=== PATIENT | male | born 1970 | race Caucasian/White ===

== ENCOUNTER 2021-02-25 15:25 | Inpatient (IN) | payer SELFPAY ==
[~2021-02-25] VITALS: Ht 167.6 cm; Wt 61.4 kg
[2021-02-25] VITALS (10 sets, daily range): BP systolic 125–158; BP diastolic 72–95
[2021-02-25 16:42] LABS: BASO # 0.1 x10^3/uL (0.0-0.2); BASO % 1 % (0-3); EOS # 0.1 x10^3/uL (0.0-0.7); EOS % 2 % (0-3); LYMPH # 1.6 x10^3/uL (1.0-4.8); LYMPH % 27 % (24-48); MEAN CORPUSCULAR HEMOGLOBIN 26 pg (25-35); MEAN CORPUSCULAR HGB CONC 32 g/dL (31-37); MEAN CORPUSCULAR VOLUME 79 fL (79-100); MONO # 0.6 x10^3/uL (0.0-1.1); MONO % 9 % (0-9); NEUT # 3.6 x10^3/uL (1.8-7.7); PLATELET COUNT 165 x10^3/uL (140-400); RED BLOOD COUNT 1.98 x10^6/uL (4.30-5.70); RED CELL DISTRIBUTION WIDTH 17.1 % (11.5-14.5)
[2021-02-25 16:47] LABS: HEMATOCRIT 15.7 % (39.0-53.0); HEMOGLOBIN 5.1 g/dL (13.0-17.5)
--- NOTE | 2021-02-25 16:57 | PHYS DOC ---
Past Medical History Past Surgical History: No Surgical History Smoking Status: Current Every Day Smoker Alcohol Use: Heavy Additional Information: 6 pack/day General Adult EDM: Chief Complaint: WEAKNESS/GENERALIZED HPI: HPI: 50 yo M M past medical history of tobacco use and alcoholism, presents to the ED BIBEMS with complaints of shortness of breath stating, "I felt so run down," and weakness for the past day. Patient reports he drinks approximately 6 beers a day, has not drink any hard liquor. States he has daily diarrhea due to beer use, color is brown. Reports he received his Covid vaccine 2 weeks ago. Has been told he is anemic but denies any prior history of blood transfusions. Review of Systems: Review of Systems: Constitutional: Denies fever or chills. [] Eyes: Denies change in visual acuity. [] HENT: Denies nasal congestion or sore throat. [] Respiratory: Denies cough or shortness of breath. [] Cardiovascular: Denies chest pain or edema. [] GI: Denies nausea or vomiting or melena or hematochezia : Denies dysuria or hematuria Musculoskeletal: Denies back pain or joint pain. [] Integument: Denies rash or diaphoresis Neurologic: Denies headache, focal weakness or sensory changes. [] Endocrine: Denies polyuria or polydipsia. [] Lymphatic: Denies swollen glands. [] Psychiatric: Denies depression or anxiety. [] Heart Score: C/O Chest Pain: No Risk Factors: Risk Factors: DM, Current or recent (<one month) smoker, HTN, HLP, family history of CAD, obesity. Risk Scores: Score 0 - 3: 2.5% MACE over next 6 weeks - Discharge Home Score 4 - 6: 20.3% MACE over next 6 weeks - Admit for Clinical Observation Score 7 - 10: 72.7% MACE over next 6 weeks - Early Invasive Strategies Allergies: Allergies: Allergies Coded Allergies Type Severity Reaction Last Updated Verified Penicillins Allergy Intermediate 02/25/21 Yes aspirin Allergy Intermediate 02/25/21 Yes codeine Allergy Intermediate 02/25/21 Yes Physical Exam: PE: Constitutional: Unkept/disheveled appearance, slurred speech HENT: Normocephalic, atraumatic, dry mucous membrnaes Eyes: EOMI, conjunctiva normal, no discharge. Neck: Normal range of motion, supple, Cardiovascular: S1/2 present, regular rhythm Lungs & Thorax: Speaking in full sentences, bilateral equal chest rise, no tachypnea or increased work of breathing Abdomen: soft, no tenderness, Skin: Warm, dry, multiple areas of excoriations Extremities: No tenderness, no cyanosis, no lower extremity edema Neurologic: Alert and oriented X 3, no focal deficits noted. [] Psychologic: Affect normal, judgement normal, mood normal. [] Current Patient Data: Labs: Laboratory Tests Test 02/25/21 16:32 White Blood Count 6.0 x10^3/uL (4.0-11.0) Red Blood Count 1.98 x10^6/uL (4.30-5.70) L Hemoglobin 5.1 g/dL (13.0-17.5) *L Hematocrit 15.7 % (39.0-53.0) *L Mean Corpuscular Volume 79 fL (79-100) Mean Corpuscular Hemoglobin 26 pg (25-35) Mean Corpuscular Hemoglobin Concent 32 g/dL (31-37) Red Cell Distribution Width 17.1 % (11.5-14.5) H Platelet Count 165 x10^3/uL (140-400) Neutrophils (%) (Auto) 60 % (31-73) Lymphocytes (%) (Auto) 27 % (24-48) Monocytes (%) (Auto) 9 % (0-9) Eosinophils (%) (Auto) 2 % (0-3) Basophils (%) (Auto) 1 % (0-3) Neutrophils # (Auto) 3.6 x10^3/uL (1.8-7.7) Lymphocytes # (Auto) 1.6 x10^3/uL (1.0-4.8) Monocytes # (Auto) 0.6 x10^3/uL (0.0-1.1) Eosinophils # (Auto) 0.1 x10^3/uL (0.0-0.7) Basophils # (Auto) 0.1 x10^3/uL (0.0-0.2) Laboratory Tests 02/25/21 16:32 Vital Signs: Vital Signs Date Time Temp Pulse Resp B/P (MAP) Pulse Ox O2 Delivery O2 Flow Rate FiO2 02/25/21 16:20 98.9 91 16 143/85 100 Room Air 98.9 EKG: EKG: Sinus rhythm 83 bpm, no axis deviation, QTC 462, no T wave inversions, no ST elevations or ST depressions, no active chest pain Radiology/Procedures: Radiology/Procedures: [] Course & Med Decision Making: Course & Med Decision Making Pertinent Labs and Imaging studies reviewed. (See chart for details) Concern for symptomatic anemia in the setting of alcohol intoxication, likely beer potomania with hyponatremia. 2 units PRBCs ordered. Patient also has bedbugs. Will admit for further medical management. Patient stable at time of admission and agrees with this plan. I have spoken with the patient and/or caregivers. I have explained the patient's condition, diagnosis and treatment plan based on the information available to me at this time. I have answered the patient's and/or caregivers questions and answered any concerns. The patient and/or caregivers have as good an understanding of the patient's diagnosis, condition and treatment plan as can be expected at this point. The patient has been stabilized within the capability of the emergency department. The patient will be transported for further care and management or will be moved to an observation or inpatient service. I have communicated with the staff or medical practitioner taking over this patient's care. Norma Disclaimer: Norma Disclaimer: This electronic medical record was generated, in whole or in part, using a voice recognition dictation system. Departure Departure Impression: Primary Impression: Anemia requiring transfusions Additional Impression: Alcohol intoxication Disposition: ADMITTED INPATIENT Admitting Physician: MOOK (Dr. Plunkett) Condition: STABLE Referrals: NO PCP (PCP) KISHA MORGAN DO Feb 25, 2021 16:56
[2021-02-25 17:08] LABS: CALCIUM 7.8 mg/dL (8.5-10.1); CREATININE 0.9 mg/dL (0.7-1.3); GFR 88.6; POTASSIUM 3.8 mmol/L (3.5-5.1)
[2021-02-25 17:14] LABS: % EOS 1 % (0-5); % LYMPHS 11 % (24-48); % MONOS 3 % (0-10); % SEGS 85 % (35-66); NEUT % 60 % (31-73)
[2021-02-25 17:15] LABS: ANISOCYTOSIS SLIGHT; PLT ESTIMATE ADEQUATE (ADEQUATE); TOXIC GRANULATION SLIGHT
[2021-02-25 17:16] LABS: HYPOCHROMIA SLIGHT
[2021-02-25 17:20] LABS: ALBUMIN 2.9 g/dL (3.4-5.0); ALBUMIN/GLOBULIN RATIO 0.5 (1.0-1.7); MAGNESIUM 1.5 mg/dL (1.8-2.4); TOTAL BILIRUBIN 0.3 mg/dL (0.2-1.0)
--- NOTE | 2021-02-25 17:37 | RAD ---
Single view chest dated 02/25/2021 5:34 PM: COMPARISON: None Clinical Indication: Weakness. Findings: Single upright portable exam of the chest was performed. Heart and mediastinal contours within normal limits. Calcified right hilar lymph nodes. There is some prominent perihilar linear markings, left g reater than right with blunting of left costophrenic sulcus. There is also an old healed rib fracture on the left. No pleural effusion. No pneumothorax. IMPRESSION: 1. No acute radiographic abnormality. 2. Linear perihilar opacity in the left with blunting of the left costophrenic sulcus, likely related to scarring. 3. Old healed rib fracture on the left. Electronically signed by: Sumanth Marquez MD (02/25/2021 5:35 PM) [facility]
[2021-02-25 17:57] LABS: BARBITURATES NEG (NEG); BENZODIAZEPINES NEG (NEG); CANNABINOIDS POS (NEG); COCAINE NEG (NEG); METHADONE NEG (NEG); OPIATES NEG (NEG); PHENCYCLIDINE NEG (NEG)
[2021-02-25 18:08] LABS: AMPHETAMINE/METHAMPHETAMINE NEG (NEG)
--- NOTE | 2021-02-25 18:50 | PDOC1 ---
History and Physical Date of Service: DOS: DATE: 02/25/21 TIME: 18:39 Chief Complaint: Chief Complain: Generalized weakness History of Present Illness: HPI: 50 yo M with PMHx of EtOH and tobacco abuse who comes in for fatigue and SOB that started today. In fact, 3 days ago patient had a hematemesis episode but felt like he could just ride it out without seeing a doctor. He reports drinking 6 beers a day and had 3 this morning. He has had tremors and feelings of withdrawal in the past. Denies fevers, syncope, chest pain, ABD pain, diarrhea or bloody diarrhea. No hx of blood transfusions. Past Medical/Surgical History: PMH/PSH: Denies past medical or surgical Hx Allergies: Allergies: Coded Allergies: Penicillins (Verified Allergy, Intermediate, 02/25/21) aspirin (Verified Allergy, Intermediate, 02/25/21) codeine (Verified Allergy, Intermediate, 02/25/21) Family History: Family History: REviewed with no relevant findings Social History: Social History: Everyday smoker and beer drinker Current Medications: Current Medications No currently on any home medications ROS: Review of Systems Review of System REVIEW OF SYSTEMS: GENERAL: + weakness SKIN: No bruising, hair changes or rashes. EYES: No blurred, double or loss of vision. NOSE AND THROAT: No history of nosebleeds, hoarseness or sore throat. HEART: No history of palpitations, chest pain or shortness of breath on exertion. LUNGS: Denies cough, hemoptysis, wheezing or shortness of breath. GASTROINTESTINAL: Denies changes in appetite, nausea, vomiting, diarrhea or constipation. GENITOURINARY: No history of frequency, urgency, hesitancy or nocturia. NEUROLOGIC: Denies history of numbness, tingling, or tremor. PSYCHIATRIC: No history of panic, anxiety or depression. ENDOCRINE: No history of heat or cold intolerance, polyuria or polydipsia. EXTREMITIES: Denies joint pain, pain on walking or stiffness. Physical Exam: Vital Signs: Vital Signs Date Time Temp Pulse Resp B/P (MAP) Pulse Ox O2 Delivery O2 Flow Rate FiO2 02/25/21 16:20 98.9 91 16 143/85 100 Room Air 98.9 Physcial Exam: General: Disheveled and malnourished. Several bugs found crawling on his pants. HEENT: Pupils equally round and reactive to light, EOMI, no discharge, normal conjunctiva Neck: Supple, no nuchal rigidity, no JVD, trachea midline, no tenderness Cardiac: RRR, no murmurs, no gallops, no rubs Chest/Lungs: CTAB, no wheeze, no rhonchi, no crackles Abdomen: soft, non-distended, no guarding, no peritoneal signs, non-tender Back: No tenderness Extremities: no edema, pulses intact, non-tender,capillary refill <3 sec bilateral upper and lower extremities, Neuro: Alert and oriented x 4, no focal deficits, normal speech Labs: Labs: Laboratory Tests Test 02/25/21 16:32 02/25/21 16:45 02/25/21 17:30 White Blood Count 6.0 x10^3/uL (4.0-11.0) Red Blood Count 1.98 x10^6/uL (4.30-5.70) Hemoglobin 5.1 g/dL (13.0-17.5) Hematocrit 15.7 % (39.0-53.0) Mean Corpuscular Volume 79 fL (79-100) Mean Corpuscular Hemoglobin 26 pg (25-35) Mean Corpuscular Hemoglobin Concent 32 g/dL (31-37) Red Cell Distribution Width 17.1 % (11.5-14.5) Platelet Count 165 x10^3/uL (140-400) Neutrophils (%) (Auto) 60 % (31-73) Lymphocytes (%) (Auto) 27 % (24-48) Monocytes (%) (Auto) 9 % (0-9) Eosinophils (%) (Auto) 2 % (0-3) Basophils (%) (Auto) 1 % (0-3) Neutrophils # (Auto) 3.6 x10^3/uL (1.8-7.7) Lymphocytes # (Auto) 1.6 x10^3/uL (1.0-4.8) Monocytes # (Auto) 0.6 x10^3/uL (0.0-1.1) Eosinophils # (Auto) 0.1 x10^3/uL (0.0-0.7) Basophils # (Auto) 0.1 x10^3/uL (0.0-0.2) Segmented Neutrophils % 85 % (35-66) Lymphocytes % 11 % (24-48) Monocytes % 3 % (0-10) Eosinophils % 1 % (0-5) Toxic Granulation Slight Platelet Estimate Adequate (ADEQUATE) Hypochromasia Slight Anisocytosis Slight Sodium Level 124 mmol/L (136-145) Potassium Level 3.8 mmol/L (3.5-5.1) Chloride Level 90 mmol/L (98-107) Carbon Dioxide Level 21 mmol/L (21-32) Anion Gap 13 (6-14) Blood Urea Nitrogen 2 mg/dL (8-26) Creatinine 0.9 mg/dL (0.7-1.3) Estimated GFR (Cockcroft-Gault) 88.6 BUN/Creatinine Ratio 2 (6-20) Glucose Level 99 mg/dL (70-99) Calcium Level 7.8 mg/dL (8.5-10.1) Magnesium Level 1.5 mg/dL (1.8-2.4) Total Bilirubin 0.3 mg/dL (0.2-1.0) Aspartate Amino Transf (AST/SGOT) 93 U/L (15-37) Alanine Aminotransferase (ALT/SGPT) 36 U/L (16-63) Alkaline Phosphatase 72 U/L (46-116) Troponin I Quantitative < 0.017 ng/mL (0.000-0.055) Total Protein 9.0 g/dL (6.4-8.2) Albumin 2.9 g/dL (3.4-5.0) Albumin/Globulin Ratio 0.5 (1.0-1.7) Ethyl Alcohol Level 333 mg/dL (0-10) Urine Opiates Screen Neg (NEG) Urine Methadone Screen Neg (NEG) Urine Barbiturates Neg (NEG) Urine Phencyclidine Screen Neg (NEG) Urine Amphetamine/Methamphetamine Neg (NEG) Urine Benzodiazepines Screen Neg (NEG) Urine Cocaine Screen Neg (NEG) Urine Cannabinoids Screen Pos (NEG) Urine Ethyl Alcohol Pos (NEG) SARS-CoV-2 Antigen (Rapid) Negative (NEGATIVE) Laboratory Tests Test 02/25/21 16:32 02/25/21 16:45 02/25/21 17:30 White Blood Count 6.0 x10^3/uL (4.0-11.0) Red Blood Count 1.98 x10^6/uL (4.30-5.70) Hemoglobin 5.1 g/dL (13.0-17.5) Hematocrit 15.7 % (39.0-53.0) Mean Corpuscular Volume 79 fL (79-100) Mean Corpuscular Hemoglobin 26 pg (25-35) Mean Corpuscular Hemoglobin Concent 32 g/dL (31-37) Red Cell Distribution Width 17.1 % (11.5-14.5) Platelet Count 165 x10^3/uL (140-400) Neutrophils (%) (Auto) 60 % (31-73) Lymphocytes (%) (Auto) 27 % (24-48) Monocytes (%) (Auto) 9 % (0-9) Eosinophils (%) (Auto) 2 % (0-3) Basophils (%) (Auto) 1 % (0-3) Neutrophils # (Auto) 3.6 x10^3/uL (1.8-7.7) Lymphocytes # (Auto) 1.6 x10^3/uL (1.0-4.8) Monocytes # (Auto) 0.6 x10^3/uL (0.0-1.1) Eosinophils # (Auto) 0.1 x10^3/uL (0.0-0.7) Basophils # (Auto) 0.1 x10^3/uL (0.0-0.2) Segmented Neutrophils % 85 % (35-66) Lymphocytes % 11 % (24-48) Monocytes % 3 % (0-10) Eosinophils % 1 % (0-5) Toxic Granulation Slight Platelet Estimate Adequate (ADEQUATE) Hypochromasia Slight Anisocytosis Slight Sodium Level 124 mmol/L (136-145) Potassium Level 3.8 mmol/L (3.5-5.1) Chloride Level 90 mmol/L (98-107) Carbon Dioxide Level 21 mmol/L (21-32) Anion Gap 13 (6-14) Blood Urea Nitrogen 2 mg/dL (8-26) Creatinine 0.9 mg/dL (0.7-1.3) Estimated GFR (Cockcroft-Gault) 88.6 BUN/Creatinine Ratio 2 (6-20) Glucose Level 99 mg/dL (70-99) Calcium Level 7.8 mg/dL (8.5-10.1) Magnesium Level 1.5 mg/dL (1.8-2.4) Total Bilirubin 0.3 mg/dL (0.2-1.0) Aspartate Amino Transf (AST/SGOT) 93 U/L (15-37) Alanine Aminotransferase (ALT/SGPT) 36 U/L (16-63) Alkaline Phosphatase 72 U/L (46-116) Troponin I Quantitative < 0.017 ng/mL (0.000-0.055) Total Protein 9.0 g/dL (6.4-8.2) Albumin 2.9 g/dL (3.4-5.0) Albumin/Globulin Ratio 0.5 (1.0-1.7) Ethyl Alcohol Level 333 mg/dL (0-10) Urine Opiates Screen Neg (NEG) Urine Methadone Screen Neg (NEG) Urine Barbiturates Neg (NEG) Urine Phencyclidine Screen Neg (NEG) Urine Amphetamine/Methamphetamine Neg (NEG) Urine Benzodiazepines Screen Neg (NEG) Urine Cocaine Screen Neg (NEG) Urine Cannabinoids Screen Pos (NEG) Urine Ethyl Alcohol Pos (NEG) SARS-CoV-2 Antigen (Rapid) Negative (NEGATIVE) Images: Images PROCEDURE: PORTABLE CHEST 1V Single view chest dated 02/25/2021 5:34 PM: COMPARISON: None Clinical Indication: Weakness. Findings: Single upright portable exam of the chest was performed. Heart and mediastinal contours within normal limits. Calcified right hilar lymph nodes. There is some prominent perihilar linear markings, left greater than right with blunting of left costophrenic sulcus. There is also an old healed rib fracture on the left. No pleural effusion. No pneumothorax. IMPRESSION: 1. No acute radiographic abnormality. 2. Linear perihilar opacity in the left with blunting of the left costophrenic sulcus, likely related to scarring. 3. Old healed rib fracture on the left. Assessment/Plan Assessment/Plan Profound symptomatic anemia due to blood loss Upper GIB acute EtoH intoxication Acute volume depletion Acute electrolyte derangement with Moderate to severe hyponatremia and hypomagnesemia EtoH Abuse Hx of EtOH withdrawal Polysubstance abuse Severe protein malnutrition elevated AST/ALT ratio Admit to hospiltast service for further management Pending 2 U PRBC transfusion trend Hb after transfusions IV electrolyte replacement PRN VOlume resuscitation Repeat chemistries HOLD DVT prophylaxis Protonix IV BID for GI prophylaxis FULL code DPOA: undesignated Dispo: Discharge after blood transfusion and Hb remains stable to avoid EtOH withdrawal. Justifications for Admission Other Justification SANDY MONTIEL MD Feb 25, 2021 18:50
[2021-02-25] MEDS ORDERED: ACETAMINOPHEN 325 MG TABLET. PO PRN (19:00)
[2021-02-25] MEDS ORDERED: MAGNESIUM SULFATE 2GM 50 ML IV ONE (19:00)
[2021-02-25] MEDS ORDERED: DOCUSATE SODIUM 100 MG CAPSULE. PO PRN (19:00)
[2021-02-25] MEDS ORDERED: DEXTROSE 50% 25 GM / 50ML DISP.SYRIN. IV PRN (19:00)
[2021-02-25] MEDS ORDERED: SENNOSIDES 8.6 MG TABLET PO PRN (19:00)
[2021-02-25] MEDS ORDERED: PROCHLORPERAZINE 10 MG/2 ML VIAL. IV PRN (19:00)
[2021-02-25] MEDS: IV NORMAL SALINE 1000ML BAG 1,000 ML IV SCH (19:21)
[2021-02-25] MEDS: FOLIC ACID 1 MG TABLET. PO SCH (19:21)
[2021-02-25] MEDS: PANTOPRAZOLE IV PUSH 40 MG VIAL. IVP SCH (19:22)
--- NOTE | 2021-02-25 21:21 | EKG ---
[facility] [address] [place] [address] Test Date: 2021-02-25 Test Time: 16:38:00 Pat Name: TALYA HUTSON Department: Room: Gender: [employer] Supervisor: : [id number] Requested By: KISHA MORGAN Order Number: [id number] Reading MD: Measurements Intervals [place] Rate: 83 P: 90 FL: 178 QRS: 51 QRSD: 86 T: 66 QT: 388 QTc: 462 Interpretive Statements SINUS RHYTHM NORMAL ECG RI6.02 No previous ECG available for comparison
[2021-02-26 03:00] VITALS: BP 137/86
[2021-02-26] MEDS: IV NORMAL SALINE 1000ML BAG 1,000 ML IV SCH ×2 (04:13→21:22)
[2021-02-26] MEDS: ONDANSETRON PF 4 MG/2 ML VIAL. IVP PRN (04:14)
[2021-02-26 05:46] LABS: CALCIUM 7.9 mg/dL (8.5-10.1); CREATININE 0.8 mg/dL (0.7-1.3); GFR 101.5; MAGNESIUM 1.9 mg/dL (1.8-2.4); PHOSPHORUS 4.1 mg/dL (2.6-4.7)
[2021-02-26 05:51] LABS: POTASSIUM 2.9 mmol/L (3.5-5.1)
[2021-02-26 05:53] LABS: BASO % 1 % (0-3); EOS # 0.1 x10^3/uL (0.0-0.7); EOS % 2 % (0-3); LYMPH # 1.5 x10^3/uL (1.0-4.8); LYMPH % 28 % (24-48); MEAN CORPUSCULAR HEMOGLOBIN 28 pg (25-35); MEAN CORPUSCULAR HGB CONC 33 g/dL (31-37); MONO # 0.7 x10^3/uL (0.0-1.1); MONO % 14 % (0-9); NEUT # 2.9 x10^3/uL (1.8-7.7); NEUT % 55 % (31-73); PLATELET COUNT 138 x10^3/uL (140-400); RED BLOOD COUNT 3.03 x10^6/uL (4.30-5.70); RED CELL DISTRIBUTION WIDTH 17.3 % (11.5-14.5); WHITE BLOOD COUNT 5.2 x10^3/uL (4.0-11.0)
[2021-02-26 06:04] LABS: HEMOGLOBIN 8.5 g/dL (13.0-17.5); MEAN CORPUSCULAR VOLUME 86 fL (79-100)
[2021-02-26 07:30] VITALS: BP 140/68
[2021-02-26] MEDS: POTASSIUM BICARB 20 MEQ EFFERVESCENT TABLET. PO SCH ×2 (08:22→11:14)
[2021-02-26] MEDS: FOLIC ACID 1 MG TABLET. PO SCH (08:22)
[2021-02-26] MEDS: PANTOPRAZOLE IV PUSH 40 MG VIAL. IVP SCH ×2 (08:22→21:22)
[2021-02-26] MEDS ORDERED: THIAMINE INJ 100 MG in IV DEXTROSE 5% 50 ML IV SCH (09:00)
[2021-02-26] MEDS ORDERED: HALOPERIDOL LACTATE 5 MG/ML VIAL. IVP PRN (09:45)
[2021-02-26 11:24] VITALS: BP 151/98
[2021-02-26 14:51] VITALS: BP 142/79
--- NOTE | 2021-02-26 17:23 | PDOC ---
GENERAL General: Patient examined chart reviewed today is hospital day 1 for this patient with longstanding alcoholism admitted with severe anemia hemoglobin of 5.1 on admission after an episode of hematemesis at home. Alcohol level upon admission is 333. Patient is on alcohol withdrawal protocol and does not appear to be having any issues relative to withdrawal at this point. He was transfused 2 units of packed red blood cells and has held his hemoglobin overnight. He has had no further bleeding. He tells me he is willing to stay to speak with somebody about alcohol rehab and community resources for alcohol cessation. Given the severity of his anemia on the presentation it would be prudent to follow another 24 hours to avoid readmission. All other systems reviewed and negative. Time spent today is 30 minutes with greater than 50% in counseling and coordination of care most of which in discussion with patient. Problems: (1) Alcohol intoxication (2) Anemia requiring transfusions VITAL SIGNS Vital Signs/I&O: Vital Signs Date Time Temp Pulse Resp B/P (MAP) Pulse Ox O2 Delivery O2 Flow Rate FiO2 02/26/21 14:51 98.9 79 20 142/79 (100) 97 Room Air 98.9 I & O 02/25/21 02/25/21 02/26/21 15:00 23:00 07:00 Intake Total 308 ml 700 ml Output Total 400 ml Balance 308 ml 300 ml Patient sitting up in bed resting comfortably alert and oriented x3 no acute distress HEENT exam is unremarkable for acute abnormality Chest is clear to auscultation Heart S1-S2 normal regular rate and rhythm no murmurs or gallops are noted Abdomen soft nontender nondistended no masses organomegaly noted Extremity exam is unremarkable for acute abnormality ALLERGIES Allergies: Allergies Coded Allergies Type Severity Reaction Last Updated Verified Penicillins Allergy Intermediate 02/25/21 Yes aspirin Allergy Intermediate 02/25/21 Yes codeine Allergy Intermediate 02/25/21 Yes MEDS Medications: Current Medications Medications (Trade) Dose Ordered Sig/Lizet Start Time Stop Time Status Last Admin Dose Admin Acetaminophen (Tylenol) 650 mg PRN Q4HRS PRN 02/25/21 19:00 Dextrose (Dextrose 50%-Water Syringe) 12.5 gm PRN Q15MIN PRN 02/25/21 19:00 Docusate Sodium (Colace) 100 mg PRN DAILY PRN 02/25/21 19:00 Folic Acid (Folic Acid) 1 mg DAILY 02/25/21 19:00 02/26/21 08:22 Haloperidol Lactate (Haldol Inj) 5 mg PRN Q4HRS PRN 02/26/21 09:45 Lorazepam (Ativan Inj) 4 mg PRN Q1HR PRN 02/26/21 09:45 Magnesium Sulfate 50 ml @ 25 mls/hr 1X ONCE 02/25/21 19:00 02/25/21 20:59 DC 02/25/21 19:21 Multivitamins (Thera M Plus) 1 tab DAILY 03/03/21 09:00 Multivitamins 10 ml/Thiamine HCl 100 mg/Folic Acid 1 mg/Sodium Chloride 1,011.2 ml @ 100 mls/ hr DAILY 02/27/21 09:00 03/03/21 19:07 Ondansetron HCl (Zofran) 4 mg PRN Q6HRS PRN 02/25/21 19:00 02/26/21 04:14 Pantoprazole Sodium (PROTONIX VIAL for IV PUSH) 40 mg BID 02/25/21 19:01 02/26/21 08:22 Potassium Bicarbonate (Potassium Effervescent Tablet) 40 meq Q4H 02/26/21 07:00 02/26/21 11:01 DC 02/26/21 11:14 Prochlorperazine Edisylate (Compazine) 10 mg PRN Q6HRS PRN 02/25/21 19:00 Sennosides (Senna) 17.2 mg PRN BID PRN 02/25/21 19:00 Sodium Chloride 1,000 ml @ 100 mls/hr Q10H 02/25/21 19:00 02/26/21 04:13 Thiamine Mononitrate (Vitamin B-1) 100 mg DAILY 03/03/21 09:00 Thiamine HCl 100 mg/Dextrose 51 ml @ 102 mls/hr DAILY 02/26/21 09:00 02/26/21 09:30 Current Medications Medications (Trade) Dose Ordered Sig/Lizet Route PRN Reason Start Time Stop Time Status Last Admin Dose Admin Ondansetron HCl (Zofran) 4 mg PRN Q6HRS PRN IVP NAUSEA/VOMITING 02/25/21 19:00 02/26/21 04:14 Sodium Chloride 1,000 ml @ 100 mls/hr Q10H IV 02/25/21 19:00 02/26/21 04:13 Pantoprazole Sodium (PROTONIX VIAL for IV PUSH) 40 mg BID IVP 02/25/21 19:01 02/26/21 08:22 Thiamine HCl 100 mg/Dextrose 51 ml @ 102 mls/hr DAILY IV 02/26/21 09:00 02/26/21 09:30 Folic Acid (Folic Acid) 1 mg DAILY PO 02/25/21 19:00 02/26/21 08:22 Magnesium Sulfate 50 ml @ 25 mls/hr 1X ONCE IV 02/25/21 19:00 02/25/21 20:59 DC 02/25/21 19:21 Potassium Bicarbonate (Potassium Effervescent Tablet) 40 meq Q4H PO 02/26/21 07:00 02/26/21 11:01 DC 02/26/21 11:14 LAB Lab: Laboratory Tests Test 02/25/21 17:30 02/26/21 05:00 02/26/21 05:10 02/26/21 14:35 Urine Opiates Screen Neg (NEG) Urine Methadone Screen Neg (NEG) Urine Barbiturates Neg (NEG) Urine Phencyclidine Screen Neg (NEG) Urine Amphetamine/Methamphetamine Neg (NEG) Urine Benzodiazepines Screen Neg (NEG) Urine Cocaine Screen Neg (NEG) Urine Cannabinoids Screen Pos (NEG) Urine Ethyl Alcohol Pos (NEG) SARS-CoV-2 RNA ([place]) Negative (Negative) SARS-CoV-2 Antigen (Rapid) Negative (NEGATIVE) White Blood Count 5.2 x10^3/uL (4.0-11.0) Red Blood Count 3.03 x10^6/uL (4.30-5.70) L Hemoglobin 8.5 g/dL (13.0-17.5) #L Hematocrit 26.0 % (39.0-53.0) L Mean Corpuscular Volume 86 fL (79-100) # Mean Corpuscular Hemoglobin 28 pg (25-35) Mean Corpuscular Hemoglobin Concent 33 g/dL (31-37) Red Cell Distribution Width 17.3 % (11.5-14.5) H Platelet Count 138 x10^3/uL (140-400) L Neutrophils (%) (Auto) 55 % (31-73) Lymphocytes (%) (Auto) 28 % (24-48) Monocytes (%) (Auto) 14 % (0-9) H Eosinophils (%) (Auto) 2 % (0-3) Basophils (%) (Auto) 1 % (0-3) Neutrophils # (Auto) 2.9 x10^3/uL (1.8-7.7) Lymphocytes # (Auto) 1.5 x10^3/uL (1.0-4.8) Monocytes # (Auto) 0.7 x10^3/uL (0.0-1.1) Eosinophils # (Auto) 0.1 x10^3/uL (0.0-0.7) Basophils # (Auto) 0.0 x10^3/uL (0.0-0.2) Sodium Level 131 mmol/L (136-145) L Potassium Level 2.9 mmol/L (3.5-5.1) *L 3.9 mmol/L (3.5-5.1) # Chloride Level 97 mmol/L (98-107) L Carbon Dioxide Level 21 mmol/L (21-32) Anion Gap 13 (6-14) Blood Urea Nitrogen 2 mg/dL (8-26) L Creatinine 0.8 mg/dL (0.7-1.3) Estimated GFR (Cockcroft-Gault) 101.5 Glucose Level 87 mg/dL (70-99) Calcium Level 7.9 mg/dL (8.5-10.1) L Phosphorus Level 4.1 mg/dL (2.6-4.7) Magnesium Level 1.9 mg/dL (1.8-2.4) Laboratory Tests 02/26/21 05:00 Laboratory Tests 02/26/21 05:10 02/26/21 14:35 ASSESSMENT & PLAN A&P Plan as noted above This note was created using SVXR and may have omissions and/or errors due to the nature of real-time voice autism specialist. Justifications for Admission Other Justification Anemia TING LEBRON MD Feb 26, 2021 17:23
[2021-02-26 19:50] VITALS: BP 132/91
[2021-02-26 22:40] VITALS: BP 162/86
[2021-02-27 02:45] VITALS: BP 143/81
[2021-02-27 07:20] VITALS: BP 171/81
[2021-02-27 08:43] LABS: ALBUMIN 2.1 g/dL (3.4-5.0); ALBUMIN/GLOBULIN RATIO 0.4 (1.0-1.7); CREATININE 0.8 mg/dL (0.7-1.3); GFR 101.5; POTASSIUM 3.4 mmol/L (3.5-5.1); TOTAL BILIRUBIN 0.7 mg/dL (0.2-1.0); TOTAL PROTEIN 7.4 g/dL (6.4-8.2)
[2021-02-27 08:58] LABS: BASO % 1 % (0-3); EOS # 0.5 x10^3/uL (0.0-0.7); EOS % 7 % (0-3); HEMATOCRIT 25.2 % (39.0-53.0); LYMPH # 0.5 x10^3/uL (1.0-4.8); LYMPH % 8 % (24-48); MEAN CORPUSCULAR HEMOGLOBIN 28 pg (25-35); MEAN CORPUSCULAR HGB CONC 32 g/dL (31-37); MEAN CORPUSCULAR VOLUME 87 fL (79-100); MONO # 1.2 x10^3/uL (0.0-1.1); MONO % 16 % (0-9); NEUT # 4.9 x10^3/uL (1.8-7.7); NEUT % 69 % (31-73); PLATELET COUNT 137 x10^3/uL (140-400); RED BLOOD COUNT 2.91 x10^6/uL (4.30-5.70); RED CELL DISTRIBUTION WIDTH 16.8 % (11.5-14.5); WHITE BLOOD COUNT 7.2 x10^3/uL (4.0-11.0)
[2021-02-27] MEDS: MULTIVIT INFUSN,ADULT 4,VIT K 10 ML, THIAMINE INJ 100 MG, FOLIC ACID INJ 1 MG in IV NOR... IV SCH (09:07)
[2021-02-27] MEDS: FOLIC ACID 1 MG TABLET. PO SCH (09:07)
[2021-02-27] MEDS: PANTOPRAZOLE IV PUSH 40 MG VIAL. IVP SCH ×2 (09:08→21:43)
[2021-02-27 09:19] LABS: CALCIUM 7.9 mg/dL (8.5-10.1); CREATININE 0.7 mg/dL (0.7-1.3); GFR 118.4; MAGNESIUM 1.5 mg/dL (1.8-2.4); POTASSIUM 3.6 mmol/L (3.5-5.1)
--- NOTE | 2021-02-27 10:11 | NUR ---
SS following up with discharge planning. SS reviewed pt chart and discussed with pt RN. Pt is from home and is currently on room air. Pt positive for THC and ETOH. CIWA protocol. Self pay. PAT team referral made for assessment and recommendations. Kathleen Pena from PAT team coming to meet with pt. SS will continue to follow for discharge planning. Addendum: 02/27/21 at 1127 by SARAHY GARRISON Kathleen Pena met with pt and provided resources for [place]. Pt reported that he attends AA with his sorter pricer bi-weekly.
[2021-02-27 10:28] VITALS: BP 133/78
[2021-02-27 15:20] VITALS: BP 145/85
[2021-02-27] MEDS ORDERED: MAGNESIUM SULFATE 2GM 50 ML IV ONE (16:00)
--- NOTE | 2021-02-27 19:00 | PDOC ---
[employer] PROGRESS NOTE Date of Service DOS: DATE: 02/27/21 TIME: 18:55 Chief Complaint Chief Complaint Profound symptomatic anemia due to blood loss Upper GIB acute EtoH intoxication Acute volume depletion Acute electrolyte derangement with Moderate to severe hyponatremia and hypomagnesemia EtoH Abuse Hx of EtOH withdrawal Polysubstance abuse Severe protein malnutrition elevated AST/ALT ratio Admit to hospiltast service for further management Pending 2 U PRBC transfusion trend Hb after transfusions IV electrolyte replacement PRN VOlume resuscitation Repeat chemistries HOLD DVT prophylaxis Protonix IV BID for GI prophylaxis FULL code DPOA: undesignated Dispo: Discharge after blood transfusion and Hb remains stable to avoid EtOH withdrawal. History of Present Illness History of Present Illness 50 yo M with PMHx of EtOH and tobacco abuse who comes in for fatigue and SOB that started today. In fact, 3 days ago patient had a hematemesis episode but felt like he could just ride it out without seeing a doctor. He reports dr inking 6 beers a day and had 3 this morning. He has had tremors and feelings of withdrawal in the past. Denies fevers, syncope, chest pain, ABD pain, diarrhea or bloody diarrhea. No hx of blood transfusions. 02/27/2021: Patient seen and evaluated. States he is feeling much better. Required minimal Ativan. He was seen by PAT team provided with local alcohol treatment resources, including resources at [facility]. Hemoglobin stable at 8.0; continue to monitor. Anticipate possible discharge tomorrow on PPI. Vitals/I&O Vitals/I&O: Vital Signs Date Time Temp Pulse Resp B/P (MAP) Pulse Ox O2 Delivery O2 Flow Rate FiO2 02/27/21 15:20 99.0 71 20 145/85 (105) 98 Room Air 99.0 I & O 02/26/21 02/26/21 02/27/21 15:00 23:00 07:00 Intake Total 660 ml 900 ml 1060 ml Output Total 400 ml 1450 ml 700 ml Balance 260 ml -550 ml 360 ml Physical Exam General: Alert, Oriented X3, Cooperative Heart: Regular rate Lungs: Clear, Wheezing Abdomen: Soft, No tenderness Extremities: No clubbing, No cyanosis Skin: No rashes Labs Labs: Laboratory Tests Test 02/27/21 07:45 02/27/21 08:40 White Blood Count 7.2 x10^3/uL (4.0-11.0) Red Blood Count 2.91 x10^6/uL (4.30-5.70) Hemoglobin 8.0 g/dL (13.0-17.5) Hematocrit 25.2 % (39.0-53.0) Mean Corpuscular Volume 87 fL (79-100) Mean Corpuscular Hemoglobin 28 pg (25-35) Mean Corpuscular Hemoglobin Concent 32 g/dL (31-37) Red Cell Distribution Width 16.8 % (11.5-14.5) Platelet Count 137 x10^3/uL (140-400) Neutrophils (%) (Auto) 69 % (31-73) Lymphocytes (%) (Auto) 8 % (24-48) Monocytes (%) (Auto) 16 % (0-9) Eosinophils (%) (Auto) 7 % (0-3) Basophils (%) (Auto) 1 % (0-3) Neutrophils # (Auto) 4.9 x10^3/uL (1.8-7.7) Lymphocytes # (Auto) 0.5 x10^3/uL (1.0-4.8) Monocytes # (Auto) 1.2 x10^3/uL (0.0-1.1) Eosinophils # (Auto) 0.5 x10^3/uL (0.0-0.7) Basophils # (Auto) 0.0 x10^3/uL (0.0-0.2) Sodium Level 130 mmol/L (136-145) 131 mmol/L (136-145) Potassium Level 3.4 mmol/L (3.5-5.1) 3.6 mmol/L (3.5-5.1) Chloride Level 97 mmol/L (98-107) 98 mmol/L (98-107) Carbon Dioxide Level 25 mmol/L (21-32) 25 mmol/L (21-32) Anion Gap 8 (6-14) 8 (6-14) Blood Urea Nitrogen 2 mg/dL (8-26) 1 mg/dL (8-26) Creatinine 0.8 mg/dL (0.7-1.3) 0.7 mg/dL (0.7-1.3) Estimated GFR (Cockcroft-Gault) 101.5 118.4 BUN/Creatinine Ratio 3 (6-20) Glucose Level 82 mg/dL (70-99) 77 mg/dL (70-99) Calcium Level 8.0 mg/dL (8.5-10.1) 7.9 mg/dL (8.5-10.1) Total Bilirubin 0.7 mg/dL (0.2-1.0) Aspartate Amino Transf (AST/SGOT) 61 U/L (15-37) Alanine Aminotransferase (ALT/SGPT) 24 U/L (16-63) Alkaline Phosphatase 57 U/L (46-116) Total Protein 7.4 g/dL (6.4-8.2) Albumin 2.1 g/dL (3.4-5.0) Albumin/Globulin Ratio 0.4 (1.0-1.7) Magnesium Level 1.5 mg/dL (1.8-2.4) Assessment and Plan Assessmemt and Plan Problems Medical Problems: (1) Alcohol intoxication Status: Acute (2) Anemia requiring transfusions Status: Acute Comment Review of Relevant I have reviewed the following items venus (where applicable) has been applied. Medications: Current Medications Medications (Trade) Dose Ordered Sig/Lizet Route PRN Reason Start Time Stop Time Status Last Admin Dose Admin Multivitamins 10 ml/Thiamine HCl 100 mg/Folic Acid 1 mg/Sodium Chloride 1,011.2 ml @ 100 mls/ hr DAILY IV 02/27/21 09:00 03/03/21 19:07 02/27/21 09:07 Magnesium Sulfate 50 ml @ 25 mls/hr 1X ONCE IV 02/27/21 16:00 02/27/21 17:59 DC 02/27/21 16:31 Justifications for Admission Other Justification Anemia FERCHO ELNEA MD Feb 27, 2021 19:00
[2021-02-27 19:20] VITALS: BP 149/97
--- NOTE | 2021-02-27 19:45 | NUR ---
Pt in bed assessment completed vss poc explained pt denied pain at this time call light in reach , bed alarm set pt reoriented to surroundings will resume care and continue to monitor pt.
[2021-02-27] MEDS: IV NORMAL SALINE 1000ML BAG 1,000 ML IV SCH ×2 (21:43→21:46)
[2021-02-27 23:10] VITALS: BP 164/95
[2021-02-28 02:35] VITALS: BP 166/95
[2021-02-28 04:54] LABS: BASO # 0.1 x10^3/uL (0.0-0.2); BASO % 1 % (0-3); EOS # 0.7 x10^3/uL (0.0-0.7); EOS % 7 % (0-3); HEMATOCRIT 25.7 % (39.0-53.0); HEMOGLOBIN 8.4 g/dL (13.0-17.5); LYMPH # 0.8 x10^3/uL (1.0-4.8); LYMPH % 9 % (24-48); MEAN CORPUSCULAR HEMOGLOBIN 28 pg (25-35); MEAN CORPUSCULAR HGB CONC 33 g/dL (31-37); MEAN CORPUSCULAR VOLUME 85 fL (79-100); MONO # 1.1 x10^3/uL (0.0-1.1); MONO % 12 % (0-9); NEUT # 6.6 x10^3/uL (1.8-7.7); NEUT % 72 % (31-73); PLATELET COUNT 148 x10^3/uL (140-400); RED BLOOD COUNT 3.03 x10^6/uL (4.30-5.70); RED CELL DISTRIBUTION WIDTH 17.4 % (11.5-14.5); WHITE BLOOD COUNT 9.1 x10^3/uL (4.0-11.0)
[2021-02-28 05:21] LABS: CREATININE 0.7 mg/dL (0.7-1.3); GFR 118.4; MAGNESIUM 1.6 mg/dL (1.8-2.4); POTASSIUM 3.1 mmol/L (3.5-5.1)
[2021-02-28] MEDS: ONDANSETRON PF 4 MG/2 ML VIAL. IVP PRN (06:30)
[2021-02-28] MEDS: IV NORMAL SALINE 1000ML BAG 1,000 ML IV SCH (06:30)
[2021-02-28 07:00] VITALS: BP 154/95
[2021-02-28] MEDS: MULTIVIT INFUSN,ADULT 4,VIT K 10 ML, THIAMINE INJ 100 MG, FOLIC ACID INJ 1 MG in IV NOR... IV SCH (08:58)
[2021-02-28] MEDS: FOLIC ACID 1 MG TABLET. PO SCH (08:59)
[2021-02-28] MEDS: PANTOPRAZOLE IV PUSH 40 MG VIAL. IVP SCH (08:59)
--- NOTE | 2021-02-28 10:14 | PDOC ---
[employer] PROGRESS NOTE Date of Service DOS: DATE: 02/28/21 TIME: 10:03 Chief Complaint Chief Complaint Profound symptomatic anemia due to blood loss Upper GIB acute EtoH intoxication Acute volume depletion Acute electrolyte derangement with Moderate to severe hyponatremia and hypomagnesemia EtoH Abuse Hx of EtOH withdrawal Polysubstance abuse Severe protein malnutrition elevated AST/ALT ratio Admit to hospiltast service for further management Pending 2 U PRBC transfusion trend Hb after transfusions IV electrolyte replacement PRN VOlume resuscitation Repeat chemistries HOLD DVT prophylaxis Protonix IV BID for GI prophylaxis FULL code DPOA: undesignated Dispo: Discharge after blood transfusion and Hb remains stable to avoid EtOH withdrawal. History of Present Illness History of Present Illness 50 yo M with PMHx of EtOH and tobacco abuse who comes in for fatigue and SOB that started today. In fact, 3 days ago patient had a hematemesis episode but felt like he could just ride it out without seeing a doctor. He reports dr inking 6 beers a day and had 3 this morning. He has had tremors and feelings of withdrawal in the past. Denies fevers, syncope, chest pain, ABD pain, diarrhea or bloody diarrhea. No hx of blood transfusions. 02/27/2021: Patient seen and evaluated. States he is feeling much better. Required minimal Ativan. He was seen by PAT team provided with local alcohol treatment resources, including resources at [facility]. Hemoglobin stable at 8.0; continue to monitor. Anticipate possible discharge tomorrow on PPI. 02/18/2021: Patient seen and evaluated bedside. Slightly tachycardic today. Denies any diaphoresis, hallucinations, or tremors. Has not required any Ativan since yesterday. He has been provided resources at [facility]. He has information on local AA meetings that he has attended in the past. Currently he is wanting to leave the hospital as soon as possible because he is concerned about his dog at home that has not been fed. He is not wanting to wait to have magnesium or potassium replaced. He is alert and oriented to person, place, time, and self. He has signed AMA forms and currently waiting for us to provide a ride. Greater than 30 minutes spent managing the discharge of this patient. Vitals/I&O Vitals/I&O: Vital Signs Date Time Temp Pulse Resp B/P (MAP) Pulse Ox O2 Delivery O2 Flow Rate FiO2 8/31/21 07:00 98.7 63 16 154/95 (114) 97 Room Air 98.7 I & O 02/27/21 02/27/21 02/28/21 15:00 23:00 07:00 Intake Total 960 ml 360 ml Output Total 1300 ml 775 ml 1750 ml Balance -340 ml -415 ml -1750 ml Physical Exam General: Alert, Oriented X3, Cooperative Heart: Other (Tachycardic) Lungs: Clear Abdomen: Soft, No tenderness Extremities: No clubbing, No cyanosis Skin: No rashes Labs Labs: Laboratory Tests Test 02/28/21 04:40 White Blood Count 9.1 x10^3/uL (4.0-11.0) Red Blood Count 3.03 x10^6/uL (4.30-5.70) Hemoglobin 8.4 g/dL (13.0-17.5) Hematocrit 25.7 % (39.0-53.0) Mean Corpuscular Volume 85 fL (79-100) Mean Corpuscular Hemoglobin 28 pg (25-35) Mean Corpuscular Hemoglobin Concent 33 g/dL (31-37) Red Cell Distribution Width 17.4 % (11.5-14.5) Platelet Count 148 x10^3/uL (140-400) Neutrophils (%) (Auto) 72 % (31-73) Lymphocytes (%) (Auto) 9 % (24-48) Monocytes (%) (Auto) 12 % (0-9) Eosinophils (%) (Auto) 7 % (0-3) Basophils (%) (Auto) 1 % (0-3) Neutrophils # (Auto) 6.6 x10^3/uL (1.8-7.7) Lymphocytes # (Auto) 0.8 x10^3/uL (1.0-4.8) Monocytes # (Auto) 1.1 x10^3/uL (0.0-1.1) Eosinophils # (Auto) 0.7 x10^3/uL (0.0-0.7) Basophils # (Auto) 0.1 x10^3/uL (0.0-0.2) Sodium Level 129 mmol/L (136-145) Potassium Level 3.1 mmol/L (3.5-5.1) Chloride Level 96 mmol/L (98-107) Carbon Dioxide Level 26 mmol/L (21-32) Anion Gap 7 (6-14) Blood Urea Nitrogen 2 mg/dL (8-26) Creatinine 0.7 mg/dL (0.7-1.3) Estimated GFR (Cockcroft-Gault) 118.4 Glucose Level 92 mg/dL (70-99) Calcium Level 8.0 mg/dL (8.5-10.1) Magnesium Level 1.6 mg/dL (1.8-2.4) Assessment and Plan Assessmemt and Plan Problems Medical Problems: (1) Alcohol intoxication Status: Acute (2) Anemia requiring transfusions Status: Acute Comment Review of Relevant I have reviewed the following items venus (where applicable) has been applied. Medications: Current Medications Medications (Trade) Dose Ordered Sig/Lizet Route PRN Reason Start Time Stop Time Status Last Admin Dose Admin Magnesium Sulfate 50 ml @ 25 mls/hr 1X ONCE IV 02/27/21 16:00 02/27/21 17:59 DC 02/27/21 16:31 Justifications for Admission Other Justification Anemia FERCHO ELENA MD Feb 28, 2021 10:14
--- NOTE | 2021-02-28 10:16 | PDOC3 ---
Discharge Summary Visit Information Date of Admission: Feb 25, 2021 Date of Discharge: Feb 28, 2021 Final Diagnosis Problems Medical Problems: (1) Alcohol intoxication Status: Acute (2) Anemia requiring transfusions Status: Acute Brief Hospital Course Allergies Allergies Coded Allergies Type Severity Reaction Last Updated Verified Penicillins Allergy Intermediate 02/25/21 Yes aspirin Allergy Intermediate 02/25/21 Yes codeine Allergy Intermediate 02/25/21 Yes Vital Signs Vital Signs Date Time Temp Pulse Resp B/P (MAP) Pulse Ox O2 Delivery O2 Flow Rate FiO2 02/28/21 07:00 98.7 63 16 154/95 (114) 97 Room Air 98.7 Lab Results Laboratory Tests Test 02/26/21 14:35 02/27/21 07:45 02/27/21 08:40 02/28/21 04:40 Potassium Level 3.9 mmol/L (3.5-5.1) 3.4 mmol/L (3.5-5.1) 3.6 mmol/L (3.5-5.1) 3.1 mmol/L (3.5-5.1) White Blood Count 7.2 x10^3/uL (4.0-11.0) 9.1 x10^3/uL (4.0-11.0) Red Blood Count 2.91 x10^6/uL (4.30-5.70) 3.03 x10^6/uL (4.30-5.70) Hemoglobin 8.0 g/dL (13.0-17.5) 8.4 g/dL (13.0-17.5) Hematocrit 25.2 % (39.0-53.0) 25.7 % (39.0-53.0) Mean Corpuscular Volume 87 fL (79-100) 85 fL (79-100) Mean Corpuscular Hemoglobin 28 pg (25-35) 28 pg (25-35) Mean Corpuscular Hemoglobin Concent 32 g/dL (31-37) 33 g/dL (31-37) Red Cell Distribution Width 16.8 % (11.5-14.5) 17.4 % (11.5-14.5) Platelet Count 137 x10^3/uL (140-400) 148 x10^3/uL (140-400) Neutrophils (%) (Auto) 69 % (31-73) 72 % (31-73) Lymphocytes (%) (Auto) 8 % (24-48) 9 % (24-48) Monocytes (%) (Auto) 16 % (0-9) 12 % (0-9) Eosinophils (%) (Auto) 7 % (0-3) 7 % (0-3) Basophils (%) (Auto) 1 % (0-3) 1 % (0-3) Neutrophils # (Auto) 4.9 x10^3/uL (1.8-7.7) 6.6 x10^3/uL (1.8-7.7) Lymphocytes # (Auto) 0.5 x10^3/uL (1.0-4.8) 0.8 x10^3/uL (1.0-4.8) Monocytes # (Auto) 1.2 x10^3/uL (0.0-1.1) 1.1 x10^3/uL (0.0-1.1) Eosinophils # (Auto) 0.5 x10^3/uL (0.0-0.7) 0.7 x10^3/uL (0.0-0.7) Basophils # (Auto) 0.0 x10^3/uL (0.0-0.2) 0.1 x10^3/uL (0.0-0.2) Sodium Level 130 mmol/L (136-145) 131 mmol/L (136-145) 129 mmol/L (136-145) Chloride Level 97 mmol/L (98-107) 98 mmol/L (98-107) 96 mmol/L (98-107) Carbon Dioxide Level 25 mmol/L (21-32) 25 mmol/L (21-32) 26 mmol/L (21-32) Anion Gap 8 (6-14) 8 (6-14) 7 (6-14) Blood Urea Nitrogen 2 mg/dL (8-26) 1 mg/dL (8-26) 2 mg/dL (8-26) Creatinine 0.8 mg/dL (0.7-1.3) 0.7 mg/dL (0.7-1.3) 0.7 mg/dL (0.7-1.3) Estimated GFR (Cockcroft-Gault) 101.5 118.4 118.4 BUN/Creatinine Ratio 3 (6-20) Glucose Level 82 mg/dL (70-99) 77 mg/dL (70-99) 92 mg/dL (70-99) Calcium Level 8.0 mg/dL (8.5-10.1) 7.9 mg/dL (8.5-10.1) 8.0 mg/dL (8.5-10.1) Total Bilirubin 0.7 mg/dL (0.2-1.0) Aspartate Amino Transf (AST/SGOT) 61 U/L (15-37) Alanine Aminotransferase (ALT/SGPT) 24 U/L (16-63) Alkaline Phosphatase 57 U/L (46-116) Total Protein 7.4 g/dL (6.4-8.2) Albumin 2.1 g/dL (3.4-5.0) Albumin/Globulin Ratio 0.4 (1.0-1.7) Magnesium Level 1.5 mg/dL (1.8-2.4) 1.6 mg/dL (1.8-2.4) Laboratory Tests Test 02/28/21 04:40 White Blood Count 9.1 x10^3/uL (4.0-11.0) Red Blood Count 3.03 x10^6/uL (4.30-5.70) Hemoglobin 8.4 g/dL (13.0-17.5) Hematocrit 25.7 % (39.0-53.0) Mean Corpuscular Volume 85 fL (79-100) Mean Corpuscular Hemoglobin 28 pg (25-35) Mean Corpuscular Hemoglobin Concent 33 g/dL (31-37) Red Cell Distribution Width 17.4 % (11.5-14.5) Platelet Count 148 x10^3/uL (140-400) Neutrophils (%) (Auto) 72 % (31-73) Lymphocytes (%) (Auto) 9 % (24-48) Monocytes (%) (Auto) 12 % (0-9) Eosinophils (%) (Auto) 7 % (0-3) Basophils (%) (Auto) 1 % (0-3) Neutrophils # (Auto) 6.6 x10^3/uL (1.8-7.7) Lymphocytes # (Auto) 0.8 x10^3/uL (1.0-4.8) Monocytes # (Auto) 1.1 x10^3/uL (0.0-1.1) Eosinophils # (Auto) 0.7 x10^3/uL (0.0-0.7) Basophils # (Auto) 0.1 x10^3/uL (0.0-0.2) Sodium Level 129 mmol/L (136-145) Potassium Level 3.1 mmol/L (3.5-5.1) Chloride Level 96 mmol/L (98-107) Carbon Dioxide Level 26 mmol/L (21-32) Anion Gap 7 (6-14) Blood Urea Nitrogen 2 mg/dL (8-26) Creatinine 0.7 mg/dL (0.7-1.3) Estimated GFR (Cockcroft-Gault) 118.4 Glucose Level 92 mg/dL (70-99) Calcium Level 8.0 mg/dL (8.5-10.1) Magnesium Level 1.6 mg/dL (1.8-2.4) Brief Hospital Course Mr. Ball is a 50 old male who presented with alcohol use, alcohol withdrawal. He was treated with alcohol withdrawal protocol, thiamine, folic acid, and multivitamin. As his symptoms improved he began to require less Ativan. On the date of discharge he was adamant about leaving prior to having his magnesium and potassium levels replaced. He eventually did decide to leave [facility]. Discharge Information Condition at Discharge: Stable Disposition/Orders: D/C to Home Scheduled Info (No Known Medications Prior To Admisstion) Each, 1 EACH 1X for 1, (Reported) Entered as Reported by: PATRICIA GUZMAN on 02/26/21736 Last Action: New Order on 02/26/21736 by PATRICIA GUZMAN Justicifation of Admission Dx: Justifications for Admission: Justification of Admission Dx: Yes FERCHO ELENA MD Feb 28, 2021 10:16
--- NOTE | 2021-02-28 10:36 | NUR ---
Patient all this morning agitated saying he needed to leave now because he dog is at home. This RN called patient's brother Derek & his brother said the patient's neighbor was taking care of the dog. Patient notified of this but still says he has to leave. Dr. Gross notified & patient left AMA. Patient's brother notified of patient leaving hospital.
--- NOTE | 2021-02-28 10:38 | NUR ---
Discharge Note: TALYA HUTSON [address] [place] [address] The following instructions and handouts were given: N/A patient left AMA Discontinued lines and drains: Peripheral IV intact. Patient discharged to AMA/home with hospital transportation via Wheelchair at 1033.
[2021-03-03] MEDS ORDERED: THIAMINE 100 MG TABLET. PO SCH (09:00)
[2021-03-03] MEDS ORDERED: MULTIVITAMIN with MINERAL TABLET. PO SCH (09:00)
== END 2021-02-28 10:33 | disposition left against medical advice (07) | DRG 811 ==
LOC: ER 15:25 → ED HOLD 16:55 → 6 SOUTH 20:24
PROVIDERS: ADMIT Internal Medicine; ATTEND Internal Medicine
PROC: 30233N1 Transfusion of Nonautologous Red Blood Cells into Peripheral Vein, Percutaneous Approach (ICD-10-PCS; principal; 2021-02-25)
DX: D50.0 Iron deficiency anemia secondary to blood loss (chronic) (principal); E43 Unspecified severe protein-calorie malnutrition; E87.1 Hypo-osmolality and hyponatremia; F10.239 Alcohol dependence with withdrawal, unspecified; Z68.21 Body mass index [BMI] 21.0-21.9, adult; E83.42 Hypomagnesemia; E86.9 Volume depletion, unspecified; F10.229 Alcohol dependence with intoxication, unspecified; F19.10 Other psychoactive substance abuse, uncomplicated; F17.200 Nicotine dependence, unspecified, uncomplicated; Z20.822 Contact with and (suspected) exposure to COVID-19; R91.8 Other nonspecific abnormal finding of lung field; R74.01 Elevation of levels of liver transaminase levels; Z88.0 Allergy status to penicillin; Z88.5 Allergy status to narcotic agent; Z88.6 Allergy status to analgesic agent; Z53.29 Procedure and treatment not carried out because of patient's decision for other reasons
CPT/HCPCS: 36415; 36430; 71045; 80048; 80053; 80307; 83735; 84100; 84132; 84484; 85007; 85025; 86850; 86900; 86901; 86920; 87426; 93005; 96365; 96366; C9113; G0480; J2060; J2405; J3411; J3475; J3490; J7030; J7060; P9016; U0003; U0005; 99285-25; G0378

== ENCOUNTER 2021-03-04 18:40 | Emergency (ER) | payer SELFPAY ==
[~2021-03-04] VITALS: Ht 165.1 cm; Wt 61.0 kg
[2021-03-04] MEDS ORDERED: NEOMY/BACITR/POLYMYXIN OINT PACKET. TP ONE (19:30)
--- NOTE | 2021-03-04 19:46 | RAD ---
Exam: Right knee 3 views INDICATION: Pain status post fall TECHNIQUE: Frontal, lateral and oblique views of the right knee Comparisons: None FINDINGS: Bone mineralization is normal. Subtle linear lucency through the patella on frontal view. Soft tissue s are unremarkable. Joint spaces are well-maintained. IMPRESSION: Subtle vertically oriented lucency noted through the mid patella on frontal view only, nonspecific co uld be artifactual or nondisplaced fracture. Consider sunrise view or CT for further evaluation. Electronically signed by: Janette Gonzales MD (03/04/2021 7:43 PM) [facility]
--- NOTE | 2021-03-04 19:47 | RAD ---
Exam: Right hip 2 views with pelvis INDICATION: Pain, status post fall TECHNIQUE: Frontal view of pelvis with frontal and frog-leg lateral views of the right hip Comparisons: None FINDINGS: Bone mineralization is normal. No acute or healed fractures. Soft tissues are unremarkable. Joint spa carlene are well-maintained. IMPRESSION: No acute osseous abnormality Electronically signed by: Janette Gonzales MD (03/04/2021 7:45 PM) [facility]
--- NOTE | 2021-03-04 19:49 | RAD ---
Exam: Chest one view INDICATION: Pain status post fall TECHNIQUE: Frontal view of the chest Comparisons: 02/25/2021 FINDINGS: The cardiomediastinal silhouette and pulmonary vessels are within normal limits. Strandy left midlung airspace disease. No pleural effusion. IMPRESSION: Strandy left midlung airspace disease which is similar when compared to the prior study, may relate t o atelectasis or scarring. No definite acute process identified. Electronically signed by: Janette Gonzales MD (03/04/2021 7:46 PM) [facility]
[2021-03-04] MEDS ORDERED: MULTIVIT INFUSN,ADULT 4,VIT K 10 ML, THIAMINE INJ 100 MG, FOLIC ACID INJ 1 MG in IV NOR... IV ONE (20:00)
[2021-03-04 20:21] LABS: BILIRUBIN,URINE NEGATIVE (NEG); CLARITY,URINE CLEAR; COLOR,URINE YELLOW; NITRITE,URINE NEGATIVE (NEG); PH,URINE 5.5 (<5.0-8.0); PROTEIN,URINE NEGATIVE (NEG-TRACE); UROBILINOGEN,URINE 0.2 mg/dL (0.2 mg/dL)
[2021-03-04 20:27] LABS: BACTERIA,URINE 0 /HPF (0-FEW); BARBITURATES NEG (NEG); BENZODIAZEPINES NEG (NEG); CANNABINOIDS POS (NEG); COCAINE NEG (NEG); METHADONE NEG (NEG); OPIATES NEG (NEG); PHENCYCLIDINE NEG (NEG); RBC,URINE 0 /HPF (0-2); WBC,URINE 0 /HPF (0-4)
[2021-03-04 20:31] LABS: AMPHETAMINE/METHAMPHETAMINE NEG (NEG)
[2021-03-04 20:54] LABS: BASO # 0.1 x10^3/uL (0.0-0.2); BASO % 3 % (0-3); EOS # 0.4 x10^3/uL (0.0-0.7); EOS % 9 % (0-3); HEMATOCRIT 23.7 % (39.0-53.0); HEMOGLOBIN 7.6 g/dL (13.0-17.5); LYMPH # 1.1 x10^3/uL (1.0-4.8); LYMPH % 22 % (24-48); MEAN CORPUSCULAR HEMOGLOBIN 27 pg (25-35); MEAN CORPUSCULAR HGB CONC 32 g/dL (31-37); MEAN CORPUSCULAR VOLUME 86 fL (79-100); MONO # 0.8 x10^3/uL (0.0-1.1); MONO % 16 % (0-9); NEUT # 2.5 x10^3/uL (1.8-7.7); NEUT % 51 % (31-73); PLATELET COUNT 313 x10^3/uL (140-400); RED BLOOD COUNT 2.77 x10^6/uL (4.30-5.70); RED CELL DISTRIBUTION WIDTH 17.7 % (11.5-14.5)
[2021-03-04 21:03] LABS: CALCIUM 7.7 mg/dL (8.5-10.1); CREATININE 0.7 mg/dL (0.7-1.3); GFR 118.4; POTASSIUM 3.6 mmol/L (3.5-5.1)
[2021-03-04 21:09] LABS: ALBUMIN 2.6 g/dL (3.4-5.0); ALBUMIN/GLOBULIN RATIO 0.4 (1.0-1.7); TOTAL BILIRUBIN 0.2 mg/dL (0.2-1.0); TOTAL PROTEIN 8.8 g/dL (6.4-8.2)
--- NOTE | 2021-03-04 21:13 | RAD ---
Exam Date: 03/04/2021 8:[address] HEAD AND C-SPINE WO Indication: Reason: fall, pain, ETOH / Spl. Instructions: / History: . One or more of the following dose reduction techniques were utilized: *Automated exposure control (AEC) *Adjustment of mA and/or kV according to patient size *Use of iterative reconstruction technique *CT scan done according to ALARA, or ALARA/IMAGE GENTLY EXAMINATION: CT OF THE HEAD WITHOUT CONTRAST INDICATION: Trauma, head injury, headache; TECHNIQUE: Noncontrast helical axial CT images of the head were obtained. FINDINGS: The ventricles and sulci are prominent consistent with cerebral volume loss. Patchy ill-defined low attenuation areas in the subcortical and periventricular white matter bilaterally are consistent with microvascular disease. There is no evidence of acute intracranial hemorrhage, extra-axial collecti on, mass effect, midline shift, or acute territorial infarct. No lesion of the skull base or the calv arium is seen. The visualized paranasal sinuses, mastoid air cells, and orbits are normal in appearan ce. IMPRESSION: No evidence for acute intracranial abnormality. Volume loss and microvascular disease. EXAMINATION: CT OF THE CERVICAL SPINE WITHOUT CONTRAST Clinical Indication: Cervical spine pain after trauma Technique: Thin cut helical axial CT images through the cervical spine were obtained without contrast on a multi-detector CT scanner. Source data was then reconstructed into sagittal and coronal planes. Findings: There is grade 1 anterolisthesis of C3 on C4 and mild retrolisthesis of C4 on C5, likely degenerative . Mild to moderate multilevel degenerative changes are noted. Vertebral body heights are maintained without acute fracture. No significant prevertebral soft tissue swelling is demonstrated. No severe osseous central canal stenosis is seen. Impression: No evidence of acute cervical spine fracture. Degenerative changes noted. Electronically signed by: Santiago Alvarado MD (03/04/2021 9:10 PM) [facility]
--- NOTE | 2021-03-04 22:04 | PHYS DOC ---
Past Medical History Past Medical History: Alcoholism, Hypertension Past Medical History Limited secondary to ETOH intoxication Past Surgical History: No Surgical History Past Surgical History Limited secondary to ETOH intoxication Smoking Status: Current Every Day Smoker Alcohol Use: Heavy Drug Use: Marijuana Social History Limited secondary to ETOH intoxication General Adult EDM: Chief Complaint: MECHANICAL FALL HPI: HPI: 50-year-old male presents via EMS with report of fall last night with left facial abrasion and pain to right hip and right knee. Patient reports he drinks at least 6 beers daily. Patient reports he is drank several beers prior to arrival. Reports pain with ambulation. Patient reports he fell down some stairs. History of present illness limited secondary to alcohol intoxication. Review of Systems: Review of Systems: Constitutional: Denies fever or chills HENT: Denies nasal congestion or epistaxis Respiratory: Denies cough or shortness of breath Cardiovascular: Denies chest pain or palpitations GI: Denies abdominal pain, nausea, or vomiting : Denies dysuria or hematuria Musculoskeletal: Denies neck pain; reports right hip and right knee pain Integument: Reports abrasion to left face Neurologic: Reports headache Review of systems limited secondary to alcohol intoxication Heart Score: C/O Chest Pain: N/A Current Medications: Current Medications Medications (Trade) Dose Ordered Sig/L[place] Start Time Stop Time Status Last Admin Dose Admin Multivitamins 10 ml/Thiamine HCl 100 mg/Folic Acid 1 mg/Sodium Chloride 1,011.2 ml @ 1,000.088 mls/hr 1X ONCE 03/04/21 20:00 03/04/21 21:00 DC 03/04/21 20:09 1,000.088 MLS/HR Neomycin/ Polymyxin/ Bacitracin (Triple Antibiotic Ointment) 1 pkt 1X ONCE 03/04/21 19:30 03/04/21 19:31 DC 03/04/21 20:00 1 PKT Allergies: Allergies: Allergies Coded Allergies Type Severity Reaction Last Updated Verified Penicillins Allergy Intermediate 02/25/21 Yes aspirin Allergy Intermediate 02/25/21 Yes codeine Allergy Intermediate 02/25/21 Yes Physical Exam: PE: Constitutional: Poor hygiene, intoxicated, upon taking patient's close off several bedbugs falling off patient's body and clothing HENT: Normocephalic, atraumatic Eyes: PERRL, EOMI, conjunctiva injected bilaterally, no discharge, horizontal nystagmus Neck: Normal range of motion, no midline tenderness, supple Lungs & Thorax: No respiratory distress, equal chest rise and fall Abdomen: Soft, no tenderness; pelvis stable and nontender Skin: Warm, dry, no erythema, no rash Back: No midline tenderness, no CVA tenderness Extremities: Pain with range of motion about right hip, right patellar tenderness, anterior drawer of right knee negative, ROM intact, no edema Neurologic: Alert and oriented X 3, normal motor function, normal sensory function, no focal deficits noted Psychologic: Affect normal, judgment abnormal Current Patient Data: Labs: Laboratory Tests Test 03/04/21 19:48 03/04/21 20:35 Urine Collection Type Unknown Urine Color Yellow Urine Clarity Clear Urine pH 5.5 (<5.0-8.0) Urine Specific [place] <=1.005 (1.000-1.030) Urine Protein Negative mg/dL (NEG-TRACE) Urine Glucose (UA) Negative mg/dL (NEG) Urine Ketones (Stick) Negative mg/dL (NEG) Urine Blood Negative (NEG) Urine Nitrite Negative (NEG) Urine Bilirubin Negative (NEG) Urine Urobilinogen Dipstick 0.2 mg/dL (0.2 mg/dL) Urine Leukocyte Esterase Negative (NEG) Urine RBC 0 /HPF (0-2) Urine WBC 0 /HPF (0-4) Urine Squamous Epithelial Cells Occ /LPF Urine Bacteria 0 /HPF (0-FEW) Urine Opiates Screen Neg (NEG) Urine Methadone Screen Neg (NEG) Urine Barbiturates Neg (NEG) Urine Phencyclidine Screen Neg (NEG) Urine Amphetamine/Methamphetamine Neg (NEG) Urine Benzodiazepines Screen Neg (NEG) Urine Cocaine Screen Neg (NEG) Urine Cannabinoids Screen Pos (NEG) Urine Ethyl Alcohol Pos (NEG) White Blood Count 5.0 x10^3/uL (4.0-11.0) Red Blood Count 2.77 x10^6/uL (4.30-5.70) L Hemoglobin 7.6 g/dL (13.0-17.5) L Hematocrit 23.7 % (39.0-53.0) L Mean Corpuscular Volume 86 fL (79-100) Mean Corpuscular Hemoglobin 27 pg (25-35) Mean Corpuscular Hemoglobin Concent 32 g/dL (31-37) Red Cell Distribution Width 17.7 % (11.5-14.5) H Platelet Count 313 x10^3/uL (140-400) Neutrophils (%) (Auto) 51 % (31-73) Lymphocytes (%) (Auto) 22 % (24-48) L Monocytes (%) (Auto) 16 % (0-9) H Eosinophils (%) (Auto) 9 % (0-3) H Basophils (%) (Auto) 3 % (0-3) Neutrophils # (Auto) 2.5 x10^3/uL (1.8-7.7) Lymphocytes # (Auto) 1.1 x10^3/uL (1.0-4.8) Monocytes # (Auto) 0.8 x10^3/uL (0.0-1.1) Eosinophils # (Auto) 0.4 x10^3/uL (0.0-0.7) Basophils # (Auto) 0.1 x10^3/uL (0.0-0.2) Sodium Level 135 mmol/L (136-145) L Potassium Level 3.6 mmol/L (3.5-5.1) Chloride Level 101 mmol/L (98-107) Carbon Dioxide Level 27 mmol/L (21-32) Anion Gap 7 (6-14) Blood Urea Nitrogen 2 mg/dL (8-26) L Creatinine 0.7 mg/dL (0.7-1.3) Estimated GFR (Cockcroft-Gault) 118.4 BUN/Creatinine Ratio 3 (6-20) L Glucose Level 90 mg/dL (70-99) Calcium Level 7.7 mg/dL (8.5-10.1) L Magnesium Level 2.0 mg/dL (1.8-2.4) Total Bilirubin 0.2 mg/dL (0.2-1.0) Aspartate Amino Transferase (AST) 84 U/L (15-37) H Alanine Aminotransferase (ALT) 53 U/L (16-63) Alkaline Phosphatase 62 U/L (46-116) Total Protein 8.8 g/dL (6.4-8.2) H Albumin 2.6 g/dL (3.4-5.0) L Albumin/Globulin Ratio 0.4 (1.0-1.7) L Ethyl Alcohol Level 455 mg/dL (0-10) *H Laboratory Tests 9/4/21 20:35 Laboratory Tests 03/04/21 20:35 Vital Signs: Vital Signs Date Time Temp Pulse Resp B/P (MAP) Pulse Ox O2 Delivery O2 Flow Rate FiO2 03/04/21 21:10 88 16 155/98 (117) 98 Room Air 03/04/21 18:40 98.1 98.1 EKG: EKG: [] Radiology/Procedures: Radiology/Procedures: PROCEDURE: CT HEAD AND CERVICAL SPINE WO Exam Date: 03/04/2021 8:[address] HEAD AND C-SPINE WO Indication: Reason: fall, pain, ETOH / Spl. Instructions: / History: . One or more of the following dose reduction techniques were utilized: *Automated exposure control (AEC) *Adjustment of mA and/or kV according to patient size *Use of iterative reconstruction technique *CT scan done according to ALARA, or ALARA/IMAGE GENTLY EXAMINATION: CT OF THE HEAD WITHOUT CONTRAST INDICATION: Trauma, head injury, headache; TECHNIQUE: Noncontrast helical axial CT images of the head were obtained. FINDINGS: The ventricles and sulci are prominent consistent with cerebral volume loss. Patchy ill-defined low attenuation areas in the subcortical and periventricular white matter bilaterally are consistent with microvascular disease. There is no evidence of acute intracranial hemorrhage, extra-axial collection, mass effect, midline shift, or acute territorial infarct. No lesion of the skull base or the calvarium is seen. The visualized paranasal sinuses, mastoid air cells, and orbits are normal in appearance. IMPRESSION: No evidence for acute intracranial abnormality. Volume loss and microvascular disease. EXAMINATION: CT OF THE CERVICAL SPINE WITHOUT CONTRAST Clinical Indication: Cervical spine pain after trauma Technique: Thin cut helical axial CT images through the cervical spine were obtained without contrast on a multi-detector CT scanner. Source data was then reconstructed into sagittal and coronal planes. Findings: There is grade 1 anterolisthesis of C3 on C4 and mild retrolisthesis of C4 on C5, likely degenerative. Mild to moderate multilevel degenerative changes are noted. Vertebral body heights are maintained without acute fracture. No significant prevertebral soft tissue swelling is demonstrated. No severe osseous central canal stenosis is seen. Impression: No evidence of acute cervical spine fracture. Degenerative changes noted. Electronically signed by: Santiago Alvarado MD (03/04/2021 9:10 PM) [facility] PROCEDURE: CHEST AP ONLY Exam: Chest one view INDICATION: Pain status post fall TECHNIQUE: Frontal view of the chest Comparisons: 02/25/2021 FINDINGS: The cardiomediastinal silhouette and pulmonary vessels are within normal limits. Strandy left midlung airspace disease. No pleural effusion. IMPRESSION: Strandy left midlung airspace disease which is similar when compared to the prior study, may relate to atelectasis or scarring. No definite acute process identified. Electronically signed by: Janette Gonzales MD (03/04/2021 7:46 PM) [facility] PROCEDURE: HIP RIGHT 2V WITH PELVIS Exam: Right hip 2 views with pelvis INDICATION: Pain, status post fall TECHNIQUE: Frontal view of pelvis with frontal and frog-leg lateral views of the right hip Comparisons: None FINDINGS: Bone mineralization is normal. No acute or healed fractures. Soft tissues are unremarkable. Joint spaces are well-maintained. IMPRESSION: No acute osseous abnormality Electronically signed by: Janette Gonzales MD (03/04/2021 7:45 PM) [facility] PROCEDURE: KNEE RIGHT 3V Exam: Right knee 3 views INDICATION: Pain status post fall TECHNIQUE: Frontal, lateral and oblique views of the right knee Comparisons: None FINDINGS: Bone mineralization is normal. Subtle linear lucency through the patella on frontal view. Soft tissues are unremarkable. Joint spaces are well-maintained. IMPRESSION: Subtle vertically oriented lucency noted through the mid patella on frontal view only, nonspecific could be artifactual or nondisplaced fracture. Consider sunrise view or CT for further evaluation. Electronically signed by: Janette Gonzales MD (03/04/2021 7:43 PM) [facility] PROCEDURE: KNEE RIGHT 2V Exam Date: 03/04/2021 9:24 PM XR KNEE_RT 1-2 VIEWS Indication: Reason: [place] view (possible patellar fracture on prior XR series) / Spl. Instructions: / History: . COMPARISON: Radiograph from earlier the same day FINDINGS/ IMPRESSION: Longitudinal oriented lucencies through the mid patella are again seen consistent with nondisplaced acute fracture, possibly comminuted. Electronically signed by: Santiago Alvarado MD (03/04/2021 10:25 PM) [facility] Course & Med Decision Making: Course & Med Decision Making Pertinent Labs and Imaging studies reviewed. (See chart for details) Patient presents via EMS with report of fall last night. Patient acutely intoxicated. Patient also with poor hygiene and notation of bedbugs. CT head/cervical spine without acute process. Chest x-ray and right hip x-ray also stable. Right knee x-rays with concern for possible patellar fracture. [place] tional x-rays obtained with confirmation of patellar fracture. Knee immobilizer placed. Banana bag initiated. Labs obtained and posted to chart. EtOH greater than 450. Patient monitored in department until clinically sober. Offered admission for alcohol detox. Patient declined and reports "I can quit anytime I want ". Patient advised to discontinue alcohol abuse. Patient also advised to seek professional pest control to rid patient's household from bedbugs. Patient stable for discharge with outpatient follow-up with PCP/orthopedic. Orthopedic referral provided. Discussed findings and plan with patient, who acknowledges understanding and agreement. Dragon Disclaimer: Square Disclaimer: This electronic medical record was generated, in whole or in part, using a voice recognition dictation system. Splinting Splinting : Location: Right knee Pre-Made Type: knee immobilizer Pre-Proc Neuro Vasc Exam: normal Post-Proc Neuro Vasc Exam: normal, unchanged from pre-exam Departure Departure Impression: Primary Impression: Fall Qualified Codes: W19.XXXA - Unspecified fall, initial encounter Additional Impressions: Alcohol abuse Patellar fracture Qualified Codes: S82.024A - Nondisplaced longitudinal fracture of right patella, initial encounter for closed fracture Infestation by bed bug Head contusion Qualified Codes: S00.93XA - Contusion of unspecified part of head, initial encounter Abrasions of multiple sites Disposition: 01 HOME / SELF CARE / HOMELESS Condition: STABLE Referrals: NO PCP (PCP) GAVI HUYNH MD Patient Instructions: Abrasion, [id number], Alcohol and Drug Addiction, Finding Treatment, Alcohol, FAQs, Bedbugs, [id number], Facial or Scalp Contusion, [id number], Fall Prevention and Home Safety, [id number], Knee Immobilizer, Cnli-pp-Taua, Patellar Fracture, Adult, Walker Use Additional Instructions: Do not soak your wound. You may shower. Clean wound daily with soap and water. Change dressing 2 times daily. Use over the counter antibiotic ointment with each dressing change. Use [id number] ibuprofen and or Tylenol for pain or discomfort. Ice right knee 20 minutes on then leave off next 20 minutes. Repeat several times daily for the next few days. Utilize knee immobilizer at all times until seen by orthopedic surgeon. Utilize walker when ambulating. Please call I at to seek help for your mental health and/or drug/alcohol abuse. Please contact a professional regarding infestation of your home containing bed bugs. It likely will require use of pesticides to kill the bugs. Additionally make sure to wash your clothing and bedding in "hot water". DOMENICA ARVIZU DO Mar 04, 2021 22:04
--- NOTE | 2021-03-04 22:28 | RAD ---
Exam Date: 03/04/2021 9:24 PM XR KNEE_RT 1-2 VIEWS Indication: Reason: [place] view (possible patellar fracture on prior XR series) / Spl. Instructions: / History: . COMPARISON: Radiograph from earlier the same day FINDINGS/ IMPRESSION: Longitudinal oriented lucencies through the mid patella are again seen consistent with nondisplaced a cute fracture, possibly comminuted. Electronically signed by: Santiago Alvarado MD (03/04/2021 10:25 PM) [facility]
[2021-03-04 22:50] VITALS: BP 104/65
== END 2021-03-04 23:50 | disposition home or self-care (01) ==
LOC: ER 18:40
DX: S82.024A Nondisplaced longitudinal fracture of right patella, initial encounter for closed fracture (principal); S00.93XA Contusion of unspecified part of head, initial encounter; I10 Essential (primary) hypertension; R07.89 Other chest pain; F17.200 Nicotine dependence, unspecified, uncomplicated; Z88.0 Allergy status to penicillin; Z88.5 Allergy status to narcotic agent; Z88.6 Allergy status to analgesic agent; W10.8XXA Fall (on) (from) other stairs and steps, initial encounter; Y93.89 Activity, other specified; Y92.89 Other specified places as the place of occurrence of the external cause; Y99.8 Other external cause status; R51.9 Headache, unspecified
CPT/HCPCS: 29505; 36415; 70450; 71045; 72125; 73502; 73560; 73562; 80053; 80307; 81001; 83735; 85025; 96365; 99285; G0480; J3411; J3490; J7030